=== PATIENT | male | born 1975 | race Caucasian/White ===

== ENCOUNTER 2019-04-27 07:16 | Emergency (ER) | payer OTHER, BC, SELFPAY ==
[2019-04-27] VITALS (11 sets, daily range): BP systolic 139–151; BP diastolic 91–105; PULSE 74–86; RESP 16–18; TEMP 36.6; O2SAT 92–99; BMI 26.1
--- NOTE | 2019-04-27 07:29 | ED_ITS ---
Entered by Ankit Lozada LPN, acting as scribe for HPI - Abdominal Pain General: Chief Complaint: Abdominal Pain Stated Complaint: abd pain Time Seen by Provider: 04/27/19 07:24 Source: patient Mode of arrival: ambulatory Limitations: no limitations History of Present Illness: HPI narrative: 43 yo male presents with c/o abd pain that woke him from sleeping at 0300 this am. He reports it as a stabbing sensation. It is starting to radiate toward his back. He reports associated n/v, no blood present. He reports diarrhea, but states he is taking an abx for sinus infection that has a known side effect of diarrhea, started these 2-3 days ago. He has taken Pepto, was unable to hold that down. Pt reports h/o kidney stones, unsure if this feels like a kidney stone. He has h/o Lithotripsy. He denies pain or burning with urination. Denies hematuria. 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) Pain Consistency: constant Location: LLQ Severity: moderate Exacerbating factors: movement and other (worsened with supine position) Relieving factors: other (improved with sitting up) Associated Symptoms: Reports diarrhea, dysuria, hematuria, nausea and vomiting; Denies chills, fever(s), hematochezia, hematemesis and melena Review of Systems Const: Denies: fever or chills ENMT: Reports: other (sinus congestion- on abx) Card: Denies: chest pain Resp: Denies: shortness of breath GI: Reports: abdominal pain, nausea, vomiting and diarrhea; Denies: vomiting blood, blood in stool or black tarry stool : Reports: difficulty urinating, painful urination and blood in urine; Denies: urinary frequency or urinary urgency Musc: Reports: back pain (pain radiating from left lower abd to left lower back) PFSH ED PFSH: Statuses (acute, chronic, etc) shown below reflect problem list status as previously entered and may not be historically accurate Medical History Urolithiasis (Acute) Surgical History H/O lithotripsy (Acute) Family History Mother , AT AGE 62 Chronic kidney disease (CKD) Social History Smoking and tobacco status: never smoked Alcohol intake: never Adopted: No Caregiver/support person: No Lives independently: Yes Household members: none Marital status: Single Current occupational status: employed Physical Exam Const: COMMON NORMALS: oriented x3, no limitations, healthy appearing, alert and well nourished GENERAL APPEARANCE: cooperative; not comfortable (appears uncomfortable) HENMT: COMMON NORMALS: normocephalic, head/scalp atraumatic, external ears normal and external nose normal HEAD & SCALP: normocephalic and atraumatic NOSE: external nose normal EXTERNAL EAR: Yes external ears normal Eye: COMMON NORMALS: PERRL, EOMs intact bilaterally and conjunctivae normal CONJUNCTIVA: Yes conjunctivae normal PUPIL: Yes PERRL Neck/C-Spine: COMMON NORMALS: full ROM, no lymphadenopathy and supple Resp: COMMON NORMALS: normal respiratory effort, no retractions, no use of accessory muscles and clear to auscultation bilaterally AUSCULTATION: clear to auscultation bilaterally Cardio: COMMON NORMALS: regular rate and regular rhythm RATE: regular rate RHYTHM: regular rhythm GI: COMMON NORMALS: soft to palpation AUSCULTATION: Yes normoactive bowel sounds PALPATION: Yes soft, Yes tender (epigastric, mild) and No guarding : BLADDER/KIDNEY EXAM: Yes CVA tenderness on the left Back/Pelvis: GENERAL BACK: Yes CVA tenderness Neuro: COMMON NORMALS: oriented x3 SENSORIUM/ORIENTATION: Yes alert Skin: COMMON NORMALS: no rashes or lesions noted GENERAL SKIN EXAM: no rashes or lesions noted Procedures Intubation Mg Given: 20 Mg Given: 200 Course Vital Signs: Vital signs: Vital Signs Temperature 97.9 F 04/27/19 07:25 Pulse Rate 86 04/27/19 10:17 Respiratory Rate 16 04/27/19 10:17 Blood Pressure 143/97 04/27/19 10:17 Pulse Oximetry 97 04/27/19 10:17 MDM - Abdominal Pain Lab Data: Labs: Lab Results 04/27/19 04/27/19 04/27/19 Range/Units 07:57 07:57 07:57 WBC 11.7 H (4.0-10.0) 10^3/ uL RBC 4.81 (4.1-5.3) 10^6/u L Hgb 13.8 (11.7-16.6) g/dL Hct 42.0 (42.0-52.0) % MCV 87.3 (80-94) fL MCH 28.7 (28.0-34.0) pg MCHC 32.9 (30.0-36.0) g/dL RDW 13.1 (12.1-15.1) % Plt Count 355 (130-400) 10^3/c mm MPV 9.5 (7.4-10.4) fL Neut % (Auto) 80.8 % Lymph % (Auto) 13.9 % Major % (Auto) 4.5 % Eos % (Auto) 0.3 % Baso % (Auto) 0.2 % Neut # (Auto) 9.4 H (1.8-7.7) 10^3/u L Lymph # (Auto) 1.6 (0.8-4.8) 10^3/u L Major # (Auto) 0.5 (0.2-0.9) 10^3/u L Eos # (Auto) 0.0 (0.0-0.8) 10^3/u L Baso # (Auto) 0.0 (0.0-0.1) 10^3/u L Nucleated RBC % (a uto) 0 % Nucleated RBCs # 0.0 /100WBC Sodium 138 (136-145) mmol/L Potassium 4.0 (3.5-5.1) mmol/L Chloride 100 (98-107) mmol/L Carbon Dioxide 22 (22-29) mmol/L Anion Gap 20.0 H (5-19) BUN 18 (6-20) mg/dL Creatinine 1.0 (0.7-1.2) mg/dL GFR Calculation 82.3 L (90-130) mL/min Glucose 180 H (74-109) mg/dL Lactate 4.3 H* (0.5-2.2) mmol/L Calcium 9.7 (8.6-10.0) mg/Dl Total Bilirubin 0.5 (0.15-1.2) mg/dL AST 17 (0-40) U/L ALT 8 (0-41) U/L Alkaline Phosphata se 58 (40-130) IU/L Total Protein 7.3 (6.6-8.7) g/dL Albumin 4.6 (3.5-5.2) g/dL Globulin 2.7 (1.3-4.6) g/dL Lipase 35 (13-60) U/L Urine Color (Yellow) Urine Appearance (CLEAR) Urine pH (5-7) Ur Specific Gravit y (1.005-1.030) Urine Protein (Negative) Urine Glucose (UA) (Normal) Urine Ketones (Negative) Urine Occult Blood (Negative) Urine Nitrate (Negative) Urine Bilirubin (NEGATIVE) Urine Urobilinogen (Negative) mg/dL Ur Leukocyte Clarisa ase (Negative) Urine RBC (0-2) /hpf Urine WBC (0-5) /hpf Ur Squamous Epith Cells (0-5) Urine Bacteria (NONE) Urine Mucus 04/27/19 Range/Units 08:45 WBC (4.0-10.0) 10^3/ uL RBC (4.1-5.3) 10^6/u L Hgb (11.7-16.6) g/dL Hct (42.0-52.0) % MCV (80-94) fL MCH (28.0-34.0) pg MCHC (30.0-36.0) g/dL RDW (12.1-15.1) % Plt Count (130-400) 10^3/c mm MPV (7.4-10.4) fL Neut % (Auto) % Lymph % (Auto) % Major % (Auto) % Eos % (Auto) % Baso % (Auto) % Neut # (Auto) (1.8-7.7) 10^3/u L Lymph # (Auto) (0.8-4.8) 10^3/u L Major # (Auto) (0.2-0.9) 10^3/u L Eos # (Auto) (0.0-0.8) 10^3/u L Baso # (Auto) (0.0-0.1) 10^3/u L Nucleated RBC % (a uto) % Nucleated RBCs # /100WBC Sodium (136-145) mmol/L Potassium (3.5-5.1) mmol/L Chloride (98-107) mmol/L Carbon Dioxide (22-29) mmol/L Anion Gap (5-19) BUN (6-20) mg/dL Creatinine (0.7-1.2) mg/dL GFR Calculation (90-130) mL/min Glucose (74-109) mg/dL Lactate (0.5-2.2) mmol/L Calcium (8.6-10.0) mg/Dl Total Bilirubin (0.15-1.2) mg/dL AST (0-40) U/L ALT (0-41) U/L Alkaline Phosphata se (40-130) IU/L Total Protein (6.6-8.7) g/dL Albumin (3.5-5.2) g/dL Globulin (1.3-4.6) g/dL Lipase (13-60) U/L Urine Color Natali (Yellow) Urine Appearance Hazy A (CLEAR) Urine pH 5 (5-7) Ur Specific Gravit y 1.025 (1.005-1.030) Urine Protein 1+ H (Negative) Urine Glucose (UA) Norm (Normal) Urine Ketones 1+ H (Negative) Urine Occult Blood 3+ H (Negative) Urine Nitrate Negative (Negative) Urine Bilirubin 1+ H (NEGATIVE) Urine Urobilinogen 1 H (Negative) mg/dL Ur Leukocyte Clarisa ase Negative (Negative) Urine RBC 40-50 H (0-2) /hpf Urine WBC 0-4 H (0-5) /hpf Ur Squamous Epith Cells 0-4 H (0-5) Urine Bacteria 1+ H (NONE) Urine Mucus 1+ Discharge Plan Discharge Patient Disposition: Home, Self-Care Clinical Impression: Ureterolithiasis Condition: Stable Prescriptions: New Flomax 0.4 mg capsule 0.4 mg PO DAILY Qty: 14 RF: 0 [place] 5-325 mg tablet 1 tab PO Q6H PRN (Reason: pain) Qty: 30 RF: 0 promethazine 25 mg tablet 25 mg PO Q6H PRN (Reason: nausea and vomiting) Qty: 20 RF: 0 No Action metoprolol tartrate 50 mg PO BID RF: 0 metformin 1,000 mg PO BID RF: 0 Augmentin 875 mg PO BID RF: 0 Discharge Orders: Discharge Order (Routine); Ordered 04/27/19 Ordered By: Hay Lam Referrals: Tito Miranda MD [Physician] - (follow up on kidney stone) Fish Schmitt Jr, MD [Family Provider] - Discharge Diet: Usual diet Discharge Activity: Increase activity as tolerated Activity Restrictions/Additional Instructions: Case management will call to get you scheduled to see Dr. Miranda. Strain urine. If stone is collected return to lab for analysis. Discharge Date/Time: 04/27/19 09:46 Coding Level of Care Code ED Steward/Stewardess Lounge for Chg Fwd Exam Problem Focused The documentation recorded by the Neville scott Dani Elizabeth, LPN, accurately reflects the service I personally performed and the decisions made by , Hay Lam, Apr 27, 2019 07:16
--- NOTE | 2019-04-27 07:46 | XRR_ITS ---
PROCEDURE INFORMATION: Exam: XR Abdomen, 1 View Exam date and time: 04/27/2019 8:26 AM Age: 43 years old Clinical indication: Pain and condition or disease; Other: Nephrolithiasis; Abdominal pain; Generalized; Prior surgery; Surgery date: 6+ months; Surgery type: Testicle; Additional info: Abd pain/nephrolithiasis TECHNIQUE: Imaging protocol: XR of the abdomen. Views: Frontal supine view of the abdomen. 1 View. COMPARISON: CR XR KUB [id number] 03/28/2017 2:22 PM FINDINGS: Gastrointestinal tract: The renal outline is significantly obscured by bowel. Intraperitoneal space: Possible punctate calcification left pelvis. Bones/joints: Suggestion of a rounded 0.5 CM calcification near the upper margin of the left transverse process of L2 and there is a possible although not confirmed density or calcification near the left transverse process of L4. XR/XR KUB portable [id number] IMPRESSION: 1. Possible left abdominal calcifications the left transverse process of L2 and L4. 2. Punctate calcification is suggested in the left pelvis.
[2019-04-27 08:04] LABS: Basophils % 0.2 %; Eosinophils % 0.3 %; Hemoglobin 13.8 g/dL (11.7-16.6); Lymphocytes # 1.6 10^3/uL (0.8-4.8); Lymphocytes % 13.9 %; Mean Corpuscular HGB Conc 32.9 g/dL (30.0-36.0); Mean Corpuscular Hemoglobin 28.7 pg (28.0-34.0); Mean Corpuscular Volume 87.3 fL (80-94); Mean Platelet Volume 9.5 fL (7.4-10.4); Monocytes # 0.5 10^3/uL (0.2-0.9); Monocytes % 4.5 %; Neutrophils # 9.4 10^3/uL (1.8-7.7); Neutrophils % 80.8 %; Nucleated Red Blood Cells % 0 %; Platelet Count 355 10^3/cmm (130-400); Red Blood Count 4.81 10^6/uL (4.1-5.3); Red Cell Distribution Width 13.1 % (12.1-15.1); White Blood Count 11.7 10^3/uL (4.0-10.0)
[2019-04-27] MEDS: morphine 4 mg/mL SDV 1 mL IVP ×2 (08:11→09:22)
[2019-04-27] MEDS: sodium chloride 0.9% 1,000 ML 999 ML IV (08:12)
[2019-04-27] MEDS: ondansetron 2 mg/ML SDV 2 mL 4 MG IVP (08:12)
--- NOTE | 2019-04-27 08:19 | PC.NURSE ---
requested UA from patient, pt states he is unable to provide one at this time. NO further needs stated at this time.
--- NOTE | 2019-04-27 08:21 | PC.NURSE ---
Portable cxr in room
[2019-04-27 08:22] LABS: Alanine Aminotransferase 8 U/L (0-41); Albumin Level 4.6 g/dL (3.5-5.2); Alkaline Phosphatase 58 IU/L (40-130); Aspartate Amino Transferase 17 U/L (0-40); Blood Urea Nitrogen 18 mg/dL (6-20); Calcium 9.7 mg/Dl (8.6-10.0); Carbon Dioxide 22 mmol/L (22-29); Chloride 100 mmol/L (98-107); Globulin 2.7 g/dL (1.3-4.6); Glomerular Filtration Rate 82.3 mL/min (90-130); Glucose 180 mg/dL (74-109); Lipase 35 U/L (13-60); Sodium 138 mmol/L (136-145); Total Bilirubin 0.5 mg/dL (0.15-1.2); Total Protein 7.3 g/dL (6.6-8.7)
[2019-04-27 08:33] LABS: Lactate (Lactic Acid level) 4.3 mmol/L (0.5-2.2)
--- NOTE | 2019-04-27 08:37 | CTR_ITS ---
PROCEDURE INFORMATION: Exam: CT Abdomen And Pelvis With Contrast Exam date and time: 04/27/2019 8:50 AM Age: 43 years old Clinical indication: Abdominal pain; Generalized; Additional info: Abd pain in to back TECHNIQUE: Imaging protocol: Computed tomography of the abdomen and pelvis with intravenous contrast. Total DLP: 649.09 mGy-cm Radiation optimization: All CT scans at this facility use at least one of these dose optimization techniques: automated exposure control; mA and/or kV adjustment per patient size (includes targeted exams where dose is matched to clinical indication); or iterative reconstruction. Contrast material: OMNI 300; Contrast volume: 95 ml; Contrast route: LT AC; COMPARISON: CT Abdomen/Pelvis Renal [id number] 03/24/2017 4:20 PM FINDINGS: Liver: Normal. No mass. Gallbladder and bile ducts: Normal. No calcified stones. No ductal dilation. Pancreas: Normal. No ductal dilation. Spleen: Normal. No splenomegaly. Adrenals: Normal. No mass. Kidneys and ureters: 3 mm left UPJ stone with moderate left hydronephrosis. Stomach and bowel: Unremarkable. No obstruction. No mucosal thickening. Appendix: Normal appendix. Intraperitoneal space: Unremarkable. No free air. No significant fluid collection. Vasculature: Unremarkable. No abdominal aortic aneurysm. Lymph nodes: Unremarkable. No enlarged lymph nodes. Bladder: Unremarkable as visualized. Reproductive: Unremarkable as visualized. Bones/joints: Unremarkable. No acute fracture. Soft tissues: Unremarkable. CT/CT abdomen pelvis w con* [id number] IMPRESSION: 3 mm left UPJ stone with moderate left hydronephrosis. Radiation Dose CTDIVOL = (mGy): DLP = 649.09 (mGy-cm)
--- NOTE | 2019-04-27 08:55 | PC.NURSE ---
pt reports return of abdominal pain. ED provider notified.
[2019-04-27] MEDS: iohexol 300 mg/mL 100 mL Btl IV (09:13)
[2019-04-27 09:21] LABS: Glucose Urine UA Norm (Normal); Ketones Urine 1+ (Negative); Protein Urine 1+ (Negative); Specific Gravity, Urine 1.025 (1.005-1.030); Urine Appearance Hazy (CLEAR); Urine Color Amber (Yellow); pH Urine 5 (5-7)
[2019-04-27 09:22] LABS: Add Urine Microscopic? YES; Bilirubin Urine 1+ (NEGATIVE); Blood Urine 3+ (Negative); Nitrate Urine Negative (Negative); Urobilinogen Urine 1 mg/dL (Negative)
[2019-04-27 09:23] LABS: RBC Urine 40-50 /hpf (0-2)
[2019-04-27] MEDS: metoclopramide 5 mg/mL SDV 2 mL 10 MG IVP (09:23)
[2019-04-27 09:27] LABS: Add Urine Culture? Yes; Bacteria Urine 1+; Mucus Urine 1+; Squamous Epithelial Cell Urine 0-4 (0-5); WBC Urine 0-4 /hpf (0-5)
[2019-04-27 14:00] LABS: Leukocyte Esterase Urine Negative (Negative)
--- NOTE | 2019-04-29 12:12 | DCPLANNER ---
machining manager had message to schedule a follow up appointment for patient with Dr. Miranda. machining manager called the office of Dr. Miranda, spoke with Fide, gave clinic patients information. machining manager was told that patients information would be printed and given to Irene. Clinic will call patient with appointment information. machining manager will call for appointment information.
--- NOTE | 2019-04-30 14:48 | DCPLANNER ---
A follow up appointment was scheduled for 04.29.[address] Miranda, patient did attend the appointment.
== END 2019-04-27 09:46 | disposition home or self-care (01) ==
PROVIDERS: Emergency Provider Family Medicine; Family Provider Family Medicine
DX: N20.1 Calculus of ureter (principal); Z79.84 Long term (current) use of oral hypoglycemic drugs; Z87.442 Personal history of urinary calculi
CPT/HCPCS: 36415; 74018; 74177; 80053; 81003; 83605; 83690; 85025; 96360; 96374; 99283; A9270; J2270; J2405; J2765; J7030; Q9967

== ENCOUNTER 2019-04-29 15:52 | Outpatient (CLI) | payer BC, SELFPAY ==
--- NOTE | 2019-04-29 | XR_ITS ---
WS: [id number] ABDOMEN KUB CLINICAL INFORMATION: Renal/ureteral calculi. COMPARISON: CT April 27, 2019 FINDINGS: Stable 4.8 mm calculus in the mid left ureter at the L4 level adjacent to the transverse process. Thi s is not significantly changed since the recent CT. XR/XR KUB [id number] Impression: Unchanged 4 mm calculus mid left ureter
== END 2019-04-29 15:53 | disposition home or self-care (01) ==
LOC: RAD 15:57
PROVIDERS: Family Provider Family Medicine; Visit Provider Nurse Practitioner Family
DX: N20.1 Calculus of ureter (principal)
CPT/HCPCS: 74018; 81001

== ENCOUNTER 2019-05-22 09:54 | Outpatient (CLI) | payer BC, OTHER, SELFPAY ==
--- NOTE | 2019-05-22 10:00 | XRR_ITS ---
PROCEDURE INFORMATION: Exam: XR Abdomen, 1 View Exam date and time: 05/22/2019 10:18 AM Age: 43 years old Clinical indication: Condition or disease; Kidney or ureter condition; Calculus (stone) in kidney; Additional info: Kidney stone f/u TECHNIQUE: Imaging protocol: XR of the abdomen. Views: Frontal supine view of the abdomen. 1 View. COMPARISON: CR XR KUB [id number] 04/29/2019 4:30 PM FINDINGS: Gastrointestinal tract: Moderate mature colonic fecal stasis is seen in the ascending colon and proximal descending colon. These findings have increased since prior examination. Wound Bones/joints: Unremarkable. Negative for urinary tract stones XR/XR KUB [id number] IMPRESSION: No acute GI abnormality Negative for radiodense urinary tract stones
== END 2019-05-22 09:55 | disposition home or self-care (01) ==
PROVIDERS: Family Provider Family Medicine; PCP Urology; Visit Provider Urology
DX: N20.0 Calculus of kidney (principal)
CPT/HCPCS: 74018; 81001

== ENCOUNTER 2019-06-02 06:28 | Emergency (ER) | payer BC, SELFPAY ==
[2019-06-02 06:39] VITALS: BP 150/101; PULSE 95; RESP 18; O2SAT 98; BMI 25.1
--- NOTE | 2019-06-02 06:41 | XR_ITS ---
WS: [id number] XR KUB [id number] REASON FOR EXAM: flank pain FINDINGS: Scattered gas and fecal stasis throughout the abdomen seen. A density is seen in the left pelvis area but this was seen on previous exam and most likely is a phl ebolith. Both renal shadows appear to be normal with no definite stones and there is no definite stones is see n in the region of either ureter. XR/XR KUB [id number] IMPRESSION: Nonspecific abdominal findings.
--- NOTE | 2019-06-02 06:42 | W.ED.ABDPA2 ---
HPI - Abdominal Pain General: Chief Complaint: Abdominal Pain Stated Complaint: Side pain, cant urinate Time Seen by Provider: 06/02/19 06:31 Source: patient Limitations: no limitations History of Present Illness: HPI narrative: 43-year-old male with a history of multiple kidney stones. Patient had a kidney stone last month that he states he did pass. States he started having left flank pain radiating to his testicle the last few hours. States pain is sharp in nature and rates it a 6 out of 10 currently. He did vomit once. He denies any worsening or improving factors. MD elicited complaint: flank pain Pertinent past history: kidney stones Onset (ago): hour(s) Pain Consistency: constant Location: L flank Severity: moderate Quality: stabbing and sharp Radiation: suprapubic Exacerbating factors: nothing Relieving factors: nothing Associated Symptoms: Reports dysuria, nausea and vomiting; Denies chills, diarrhea and fever(s) Review of Systems Const: Denies: fever, chills, body aches or change in appetite Eyes: Denies: blurry vision or eye discomfort ENMT: Denies: throat pain or dental pain Card: Denies: chest pain Resp: Denies: shortness of breath GI: Reports: abdominal pain, nausea and vomiting; Denies: diarrhea : Reports: painful urination Musc: Denies: neck pain or back pain Skin/Breast: Denies: rash Neuro: Denies: headache Psych: Denies: depression Ronnie/Lymph: Denies: easy bruising All/Imm: Denies: hives PFSH ED PFSH: Social History Smoking and tobacco status: never smoked Alcohol intake: never Adopted: No Caregiver/support person: No Lives independently: Yes Household members: none Marital status: Single Current occupational status: employed History of recent travel: No Current gender identity: Male Physical Exam Const: COMMON NORMALS: no apparent distress, oriented x3 and healthy appearing HENMT: COMMON NORMALS: normocephalic and head/scalp atraumatic HEAD & SCALP: normocephalic and atraumatic Eye: COMMON NORMALS: PERRL and EOMs intact bilaterally PUPIL: Yes PERRL Neck/C-Spine: COMMON NORMALS: full ROM and supple Chest: COMMONS NORMALS: inspection of chest normal and palpation of chest normal Resp: COMMON NORMALS: normal respiratory effort, no retractions, no use of accessory muscles and clear to auscultation bilaterally AUSCULTATION: clear to auscultation bilaterally Cardio: COMMON NORMALS: regular rate, regular rhythm and no murmurs RATE: regular rate RHYTHM: regular rhythm GI: COMMON NORMALS: normal to inspection, nondistended, normoactive bowel sounds, soft to palpation, non-tender and no masses PALPATION: Yes soft Extremity: COMMON NORMALS: normal to inspection and full ROM Neuro: COMMON NORMALS: oriented x3, moves all extremities and no focal motor deficits Psych: COMMON NORMALS: mental status grossly normal, thought process normal and cooperative THOUGHT PROCESS: normal thought process Skin: COMMON NORMALS: no rashes or lesions noted and no wounds GENERAL SKIN EXAM: no rashes or lesions noted Course Vital Signs: Vital signs: Vital Signs Pulse Rate 95 06/02/19 06:39 Respiratory Rate 18 06/02/19 06:39 Blood Pressure 150/101 06/02/19 06:39 Pulse Oximetry 98 06/02/19 06:39 MDM - Abdominal Pain MDM Narrative: Medical decision making narrative: Patient presents here with flank pain with likely kidney stone. He has had multiple kidney stones in the past. He does have hematuria. His pain is resolved here no do not believe he warrants a CT scan at this time. Is abdominal exam is benign. He is to follow-up with Dr. Miranda and strain his urine. Will prescribe pain meds for home. Lab Data: Labs: Lab Results 06/02/19 Range/Units 06:40 Urine Color Straw (Yellow) Urine Appearance Clear (CLEAR) Urine pH 5 (5-7) Ur Specific Gravit y 1.025 (1.005-1.030) Urine Protein Neg (Negative) Urine Glucose (UA) Norm (Normal) Urine Ketones Negative (Negative) Urine Occult Blood 3+ H (Negative) Urine Nitrate Negative (Negative) Urine Bilirubin Neg (NEGATIVE) Urine Urobilinogen Norm (Negative) mg/dL Ur Leukocyte Clarisa ase Negative (Negative) Urine RBC 80-100 H (0-2) /hpf Urine WBC None (0-5) /hpf Ur Squamous Epith Cells Rare (0-5) Calcium Oxalate Cr ystal 5-10 H /hpf Urine Bacteria Trace (NONE) Imaging Data ^: KUB: Attestation: I personally reviewed and interpreted this imaging study as follows: My impression: no acute abnormality Discharge Plan Discharge Patient Disposition: Home, Self-Care Clinical Impression: Calculus of kidney Condition: Stable Prescriptions: [place] 5-325 mg tablet 1 tab PO Q6H PRN (Reason: pain) Qty: 14 RF: 0 Zofran 4 mg tablet 4 mg PO QID PRN (Reason: nausea and vomiting) Qty: 14 RF: 0 No Action Flomax 0.4 mg capsule 0.4 mg PO DAILY Qty: 30 RF: 0 metoprolol tartrate bottle 50 mg PO BID RF: 0 metformin bottle 1,000 mg PO BID RF: 0 hydrocodone-acetaminophen [[place]] 5-325 mg tablet 1 tab PO Q6H PRN (Reason: pain) Qty: 30 RF: 0 promethazine 25 mg tablet 25 mg PO Q6H PRN (Reason: nausea and vomiting) Qty: 20 RF: 0 Cozaar 50 mg tablet 50 mg PO DAILY RF: 0 Discharge Orders: Discharge Order (Routine); Ordered 06/02/19 Ordered By: Yandy Dangelo Referrals: Tito Miranda MD [Physician] - 4-7 days Fish Schmitt Jr, MD [Family Provider] - Fish Schmitt MD [Primary Care Provider] - Discharge Diet: Advance as tolerated Discharge Activity: Resume usual activity Patient Instructions: Kidney Stones (ED) Coding Level of Care Code ED Letter Carrier for Chg Fwd Exam Comprehensive
--- NOTE | 2019-06-02 07:10 | PC.NURSE ---
Patient returned from CT via stretcher. No needs at this time.
[2019-06-02 07:22] LABS: Specific Gravity, Urine 1.025 (1.005-1.030); Urine Appearance Clear (CLEAR); Urine Color Straw (Yellow); pH Urine 5 (5-7)
[2019-06-02 07:23] LABS: Bilirubin Urine Neg (NEGATIVE); Blood Urine 3+ (Negative); Glucose Urine UA Norm (Normal); Ketones Urine Negative (Negative); Leukocyte Esterase Urine Negative (Negative); Nitrate Urine Negative (Negative); Protein Urine Neg (Negative); Urobilinogen Urine Norm (Negative)
[2019-06-02] MEDS: ketorolac 30 mg/mL INJ IVP (07:23)
[2019-06-02] MEDS: HYDROmorphone 1 mg/mL INJ 1 mL IVP (07:23)
[2019-06-02] MEDS: sodium chloride 0.9% 1,000 ML 999 ML IV (07:23)
[2019-06-02] MEDS: ondansetron 2 mg/ML SDV 2 mL 4 MG IVP (07:23)
[2019-06-02 07:24] LABS: Add Urine Culture? Yes; Bacteria Urine TRACE; RBC Urine 80-100 /hpf (0-2); Squamous Epithelial Cell Urine RARE (0-5)
[2019-06-02 07:46] VITALS: BP 131/90; PULSE 102; RESP 14; O2SAT 97
--- NOTE | 2019-06-04 13:16 | DCPLANNER ---
tire center manager had message to schedule a follow up appointment for patient with Dr. Miranda. tire center manager called the office of Dr. Miranda, spoke with Fide. tire center manager gave clinic patients information, case coordinator was told that patient has a follow up appointment scheduled for Tuesday, June 11, 2019 at 9:15 at hospital for x ray, then he is to go to Dr. Workman office.
--- NOTE | 2019-06-25 14:25 | DCPLANNER ---
Patient did attend appointment schedueld for 06.11.[address] Miranda.
== END 2019-06-02 07:47 | disposition home or self-care (01) ==
PROVIDERS: Emergency Provider Emergency Medicine; Family Provider Family Medicine; PCP Plastic Surgery
DX: N20.0 Calculus of kidney (principal)
CPT/HCPCS: 74018; 81001; 87086; 96360; 96361; 96374; 96375; 99282; 99283; A9270; J1170; J1885; J2405; J7030

== ENCOUNTER 2019-06-11 09:44 | Outpatient (CLI) | payer BC, SELFPAY ==
--- NOTE | 2019-06-11 15:00 | XR_ITS ---
WS: [id number] KUB, 06/11/2019 Clinical Data: Renal stone Comparison: KUB, 06/02/2019 Findings: No abnormal intraabdominal masses or calcifications are seen. There is no dilatated small bowel or ev idence of obstruction. There is fecal material especially in the katina ascending colon. The bladder is partly full. There is a calcification in the left pelvis has the appearance of a phlebolith. XR/XR KUB [id number] Impression: Negative KUB.
== END 2019-06-11 09:45 | disposition home or self-care (01) ==
LOC: RAD 09:54
PROVIDERS: Family Provider Family Medicine; PCP Plastic Surgery; Visit Provider Urology
DX: N20.0 Calculus of kidney (principal)
CPT/HCPCS: 74018; 81001

== ENCOUNTER 2019-06-25 08:32 | Outpatient (CLI) | payer BC, SELFPAY ==
--- NOTE | 2019-06-25 08:15 | XR_ITS ---
WS: [id number] KUB, 06/25/2019 Clinical Data: Left ureteral stone Comparison: KUB, 06/11/2019. Findings: No abnormal intraabdominal masses or calcifications are seen. There is no dilatated small bowel or ev idence of obstruction. There is a calcification on the left side of the true pelvis which has not changed. This could repres ent a phlebolith or a distal left ureteral calculus. There is a large amount of fecal material in the ascending colon. The bladder is partly full XR/XR KUB [id number] Impression: No change in calcification on the left side of the true pelvis.
== END 2019-06-25 08:33 | disposition home or self-care (01) ==
LOC: RAD 08:36
PROVIDERS: Family Provider Family Medicine; PCP Plastic Surgery; Visit Provider Nurse Practitioner Family
DX: N20.1 Calculus of ureter (principal)
CPT/HCPCS: 74018; 81001

== ENCOUNTER 2020-01-08 13:21 | Outpatient (CLI) | payer BC, OTHER, SELFPAY ==
--- NOTE | 2020-01-08 09:00 | XRR_ITS ---
PROCEDURE INFORMATION: Exam: XR Abdomen, 1 View Exam date and time: 01/08/2020 1:32 PM Age: 44 years old Clinical indication: Condition or disease; Kidney or ureter condition; Calculus (stone) in kidney; Additional info: Ureteral stone TECHNIQUE: Imaging protocol: XR of the abdomen. Views: Frontal supine view of the abdomen. 1 View. COMPARISON: CR XR KUB [id number] 06/25/2019 8:47 AM FINDINGS: Gastrointestinal tract: No bowel dilation. There is stool throughout colon. Bones/joints: Unremarkable. There is calcification in the inferior left kidney. XR/XR KUB [id number] IMPRESSION: No acute findings. There is calcification in the inferior left kidney.If there is desire for further evaluation, a CT scan could be performed.
== END 2020-01-08 13:22 | disposition home or self-care (01) ==
LOC: RAD 13:21
PROVIDERS: PCP Family Medicine; Visit Provider Urology
DX: N20.1 Calculus of ureter (principal); N20.0 Calculus of kidney
CPT/HCPCS: 74018; 81001

== ENCOUNTER → 2020-01-23 11:05 | Outpatient (BNVA) | payer OTHER, BC, SELFPAY | PROVIDERS: PCP Family Medicine; Visit Provider Urology | DX: N20.0 Calculus of kidney (principal) | CPT/HCPCS: 80048; 81003; 82131; 82140; 82340; 82436; 82507; 82570; 83735; 83935; 84100; 84300; 84550 ==

== ENCOUNTER → 2020-03-04 14:48 | Outpatient (BNVA) | payer OTHER, BC, SELFPAY | PROVIDERS: PCP Family Medicine; Visit Provider Urology | DX: N20.0 Calculus of kidney (principal); R82.994 Hypercalciuria | CPT/HCPCS: 81003 ==

== ENCOUNTER 2020-08-10 10:36 | Emergency (ER) | payer OTHER, SELFPAY ==
[2020-08-10 10:40] VITALS: BP 148/101; PULSE 98; RESP 14; TEMP 36.6; O2SAT 100; BMI 28.8
--- NOTE | 2020-08-10 10:46 | W.ED.ABDPA2 ---
HPI - Abdominal Pain General: Chief Complaint: Abdominal Pain Stated Complaint: Poss Kidney Stones Time Seen by Provider: 08/10/20 10:38 Source: patient Mode of arrival: ambulatory Limitations: no limitations History of Present Illness: HPI narrative: Patient is a 45-year-old male who presents to ED today along with his father for complaints of left lower quadrant abdominal pain that began around 5 AM this morning. Patient states pain began fairly suddenly. He tells me he does have a history of kidney and ureter stones states the pain feels similar. Patient has followed up with Dr. Miranda for these previously. He states when the pain started he got nauseous and had one episode of vomiting. He has not noticed any changes in bowel movements. No fevers. MD elicited complaint: abdominal pain Onset (ago): hour(s) Pain Consistency: constant Location: LLQ Severity: moderate Quality: sharp Radiation: none Migration to: no migration Exacerbating factors: nothing Relieving factors: nothing Associated Symptoms: Reports nausea and vomiting (x 1); Denies change in stool character, chills, diarrhea, dysuria and fever(s) Review of Systems Const: Denies: fever(s), chills, body aches, fatigue or malaise Card: Denies: chest pain Resp: Denies: dyspnea GI: Reports: abdominal pain, nausea and vomiting (x 1); Denies: diarrhea or change in stool character : Reports: urinary hesitancy; Denies: flank pain, difficulty urinating, dysuria, urinary frequency, urinary urgency, genital lesions, testicular pain, testicular mass or scrotal swelling Musc: Denies: back pain Skin/Breast: Denies: rash PFSH ED PFSH: Medical History Diabetes H/O undescended testicle repair Left renal stone Left ureteral calculus Urolithiasis Surgical History H/O lithotripsy Family History Mother , AT AGE 62 Chronic kidney disease (CKD) Father CAD (coronary artery disease) Social History Smoking and tobacco status: never smoked Alcohol intake: never Adopted: No Caregiver/support person: No Lives independently: Yes Household members: none Marital status: Single Current occupational status: employed History of recent travel: No Current gender identity: Male Physical Exam Const: COMMON NORMALS: no acute distress, patient oriented x3, no limitations and alert GENERAL APPEARANCE: cooperative ORIENTATION/CONSCIOUSNESS: Yes awake, Yes oriented to person, Yes oriented to place and Yes oriented to time Resp: COMMON NORMALS: normal respiratory effort and clear to auscultation bilaterally AUSCULTATION: clear to auscultation bilaterally Cardio: COMMON NORMALS: regular rate and regular rhythm RATE: regular rate RHYTHM: regular rhythm GI: COMMON NORMALS: Normal to inspection, nondistended, normoactive bowel sounds present, Soft to palpation, No hepatosplenomegaly present and no masses PALPATION: Yes Soft to palpation, Yes Tenderness to palpation present (GI) Details: LLQ and Yes No hepatosplenomegaly present : COMMON NORMALS: Yes no CVA tenderness BLADDER/KIDNEY EXAM: Yes no CVA tenderness Back/Pelvis: COMMON NORMALS: no CVA tenderness Extremity: COMMON NORMALS: capillary refill normal, no clubbing, cyanosis or edema and no pedal edema Neuro: COMMON NORMALS: patient oriented x3 SENSORIUM/ORIENTATION: Yes alert, Yes oriented to person, Yes oriented to place and Yes oriented to time Skin: COMMON NORMALS: no rashes or lesions noted GENERAL SKIN EXAM: no rashes or lesions noted Course Consultations: Consultation #1: Dr. Miranda-will review CT scan and call patient with appointment date/time; request COVID screen in case stone requires surgical intervention Vital Signs: Vital signs: Vital Signs Temperature 97.9 F 08/10/20 10:40 Pulse Rate 83 08/10/20 11:55 Respiratory Rate 17 08/10/20 11:55 Blood Pressure 144/94 08/10/20 11:55 Pulse Oximetry 97 08/10/20 11:55 MDM - Abdominal Pain MDM Narrative: Medical decision making narrative: Patient believes pain could be controlled at home. No infection on UA. Will DC with Flomax, pain/nausea meds, and recommend straining urine. He will see Ruben this week for further followup/management. Lab Data: Labs: Lab Results 08/10/20 08/10/20 08/10/20 Range/Units 11:00 11:00 11:24 WBC 12.8 H (4.0-10.0) 10^3/ uL RBC 4.56 (4.1-5.3) 10^6/u L Hgb 13.5 (11.7-16.6) g/dL Hct 40.9 L (42.0-52.0) % MCV 89.7 (80-94) fL MCH 29.6 (28.0-34.0) pg MCHC 33.0 (30.0-36.0) g/dL RDW 13.7 (12.1-15.1) % Plt Count 309 (130-400) 10^3/c mm MPV 9.6 (7.4-10.4) fL Neut % (Auto) 79.8 % Lymph % (Auto) 11.2 % [place] % (Auto) 6.6 % Eos % (Auto) 1.5 % Baso % (Auto) 0.5 % Neut # (Auto) 10.24 H (1.8-7.7) 10^3/u L Lymph # (Auto) 1.4 (0.8-4.8) 10^3/u L [place] # (Auto) 0.8 (0.2-0.9) 10^3/u L Eos # (Auto) 0.2 (0.0-0.8) 10^3/u L Baso # (Auto) 0.1 (0.0-0.1) 10^3/u L Nucleated RBC % (a uto) 0 % Nucleated RBCs # 0.0 /100WBC Sodium 132 L (136-145) mmol/L Potassium 4.2 (3.5-5.1) mmol/L Chloride 97 L (98-107) mmol/L Carbon Dioxide 23 (22-29) mmol/L Anion Gap 16.2 (5-19) BUN 16 (6-20) mg/dL Creatinine 0.7 (0.7-1.2) mg/dL GFR Calculation 123.1 (90-130) mL/min Glucose 222 H (65-115) mg/dL Calculated Osmolal ity 282 L (285-295) mOsm/k g Calcium 7.9 L (8.5-10.5) mg/dL Total Bilirubin 0.6 (0.15-1.2) mg/dL AST 18 (0-40) U/L ALT 8 (0-41) U/L Alkaline Phosphata se 56 (40-130) IU/L Total Protein 6.5 L (6.6-8.7) g/dL Albumin 4.1 (3.5-5.2) g/dL Globulin 2.4 (1.3-4.6) g/dL Urine Color Yellow (Yellow) Urine Appearance Hazy A (CLEAR) Urine pH 5 (5-7) Ur Specific Gravit y 1.020 (1.005-1.030) Urine Protein Trace (Negative) Urine Glucose (UA) 2+ (Normal) Urine Ketones 1+ H (Negative) Urine Blood 3+ H (Negative) Urine Nitrate Negative (Negative) Urine Bilirubin Neg (Negative) Urine Urobilinogen Norm (Negative) mg/dL Ur Leukocyte Clarisa ase Negative (Negative) Urine RBC Too numerous to c nt H (0-2) /hpf Urine WBC None (0-5) /hpf Ur Squamous Epith Cells 0-4 H (0-5) /hpf Amorphous Sediment Not Reportable Urine Bacteria 2+ H (NONE) /hpf Imaging Data ^: CT Abd/Pel: Radiologist's impression: [place] [address] CT Scan Report Signed Patient: Garth Chapman I Unit #: [id number] : 1975 Age/Sex: 45 / M ADM Date: 08/10/20 Loc: ER Room/Bed: Attending Dr: Ordering Provider/Ordering MD: Altagracia Calvillo Date of Service: 08/10/20 Procedure(s): CT kidney stone [id number] Accession Number(s): [id number] Report Number: [id number] WS: [id number] CT ABDOMEN AND PELVIS NONCONTRAST HISTORY: L lower abdominal pain TECHNIQUE: Imaging performed through the abdomen and pelvis. Coronal and sagittal reformats are submitted. All CT scans at [facility] use at least one of these dose optimization techniques: automated exposure control; mA and/or kV adjustment per patient size (includes targeted exams where dose is matched to clinical indication); or iterative reconstruction. DLP: 1427.98 mGy.cm COMPARISON: 04/27/2019 Lower thorax: 2 mm nodule at the LEFT lung base no pleural effusions or pneumonia. Small hiatal hernia. Liver: Mild low attenuation suggesting hepatic steatosis. Liver is also moderately enlarged extending over length of 21.4 cm. Gallbladder: Normal gallbladder. Pancreas: Normal size and attenuation. Normal pancreatic duct. No pancreatitis or mass. Spleen: Normal. Adrenal glands: Normal. No mass. Right kidney: Mild perinephric stranding. No obstruction. No renal calcifications. Left kidney: Marked enlargement of the kidney with a large amount of perinephric stranding and moderate to severe hydronephrosis. No additional calcifications in the renal pelvis. 7 mm calcification in the mid LEFT ureter causing the obstruction. Aorta: Normal abdominal aorta, no aneurysm or atherosclerosis. No free fluid, intraperitoneal air or significant lymphadenopathy. GI tract: Normal appendix. No GI tract obstruction or diverticulosis. Abdominal wall: Negative. No hernia. Pelvis: Nondistended urinary bladder resulting in the wall being cystic. No free fluid or adenopathy in the pelvis. Osseous structures: Unremarkable. CT/CT kidney stone [id number] IMPRESSION: 1. Severe LEFT hydroureteronephrosis secondary to a 7 mm calcification in the mid ureter. Large amount of perinephric stranding. 2. No RIGHT renal calcifications. 3. Moderate hepatomegaly with hepatic steatosis. 4. Small hiatal hernia. 5. Normal appendix. Dictated By: Vicenta Rojas DO Signed By: Vicenta Rojas DO Signed Date/Time: 08/10/20 112 DD/ 1120 Discharge Plan Discharge Patient Disposition: Home Clinical Impression: Calculus of left ureter, Hydronephrosis of left kidney Condition: Stable Prescriptions: New hydrocodone-acetaminophen 5-325 mg tablet 1 tab PO Q4H PRN (Reason: pain) Qty: 20 RF: 0 Zofran 4 mg tablet 4 mg PO Q6H PRN (Reason: nausea and vomiting) Qty: 14 RF: 0 Flomax 0.4 mg capsule 0.4 mg PO DAILY Qty: 10 RF: 0 No Action multivitamin Tablet 1 tab PO DAILY RF: 0 levocetirizine [Xyzal] 2.5 mg/5 mL solution 2.5 mg PO DAILY PRNRF: 0 levocetirizine [Xyzal] 5 mg tablet 5 mg PO DAILY PRNRF: 0 vitamin E (dl, acetate) 200 unit capsule 200 unit PO DAILY RF: 0 [id number] [MegaRed [place]-3 Krill Oil] 1,000-230-60 mg capsule 1 cap PO DAILY RF: 0 stone free PO .2 times RF: 0 metoprolol tartrate bottle 50 mg PO BID RF: 0 metformin bottle 1,000 mg PO BID RF: 0 [place] 5-325 mg tablet 1 tab PO Q6H PRN (Reason: pain) Qty: 14 RF: 0 Cozaar 50 mg tablet See Rx Instructions PO DAILY RF: 0 Discharge Orders: Discharge ED (Routine); Ordered 08/10/20 Ordered By: Altagracia Calvillo Referrals: Abigail Roque MD [Primary Care Provider] - Patient Instructions: Kidney Stones (ED), Opioid Safety Activity Restrictions/Additional Instructions: [facility] is committed to fighting the nationwide opiate epidemic. We are providing ALL patients with information regarding opiate safety. If you received opiate pain medication during your stay or if you received a prescription for opiate pain medication-please review this handout. If not, you may disregard. Thank you. As discussed Dr. Miranda is going to see you this week. Their office should contact you for specific date and time. As we discussed due to the size of your stone this may require intervention. Begin taking the Flomax as directed. Pain and nausea meds can be used as needed. You need to return to the emergency department for worsening or uncontrollable pain, repetitive episodes of vomiting, inability to hold down your medications, fevers, or any other concerns you may have. Coding Level of Care Code ED [employer] Specialist for Jyoti Birch Exam Detailed
--- NOTE | 2020-08-10 10:55 | CT_ITS ---
WS: [id number] CT ABDOMEN AND PELVIS NONCONTRAST HISTORY: L lower abdominal pain TECHNIQUE: Imaging performed through the abdomen and pelvis. Coronal and sagittal reformats are submi tted. All CT scans at [facility] use at least one of these dose optimization techniques: automated exposure control; mA and/or kV adjustment per patient size (includes targeted exams where d ose is matched to clinical indication); or iterative reconstruction. DLP: 1427.98 mGy.cm COMPARISON: 04/27/2019 Lower thorax: 2 mm nodule at the LEFT lung base no pleural effusions or pneumonia. Small hiatal herni a. Liver: Mild low attenuation suggesting hepatic steatosis. Liver is also moderately enlarged extending over length of 21.4 cm. Gallbladder: Normal gallbladder. Pancreas: Normal size and attenuation. Normal pancreatic duct. No pancreatitis or mass. Spleen: Normal. Adrenal glands: Normal. No mass. Right kidney: Mild perinephric stranding. No obstruction. No renal calcifications. Left kidney: Marked enlargement of the kidney with a large amount of perinephric stranding and modera te to severe hydronephrosis. No additional calcifications in the renal pelvis. 7 mm calcification in the mid LEFT ureter causing the obstruction. Aorta: Normal abdominal aorta, no aneurysm or atherosclerosis. No free fluid, intraperitoneal air or significant lymphadenopathy. GI tract: Normal appendix. No GI tract obstruction or diverticulosis. Abdominal wall: Negative. No hernia. Pelvis: Nondistended urinary bladder resulting in the wall being cystic. No free fluid or adenopathy in the pelvis. Osseous structures: Unremarkable. CT/CT kidney stone [id number] IMPRESSION: 1. Severe LEFT hydroureteronephrosis secondary to a 7 mm calcification in the mid ureter. Large amount of perinephric stranding. 2. No RIGHT renal calcifications. 3. Moderate hepatomegaly with hepatic steatosis. 4. Small hiatal hernia. 5. Normal appendix.
[2020-08-10 11:06] LABS: Basophils # 0.1 10^3/uL (0.0-0.1); Basophils % 0.5 %; Eosinophils # 0.2 10^3/uL (0.0-0.8); Eosinophils % 1.5 %; Hematocrit 40.9 % (42.0-52.0); Hemoglobin 13.5 g/dL (11.7-16.6); Lymphocytes # 1.4 10^3/uL (0.8-4.8); Lymphocytes % 11.2 %; Mean Corpuscular Hemoglobin 29.6 pg (28.0-34.0); Mean Corpuscular Volume 89.7 fL (80-94); Mean Platelet Volume 9.6 fL (7.4-10.4); Monocytes # 0.8 10^3/uL (0.2-0.9); Monocytes % 6.6 %; Neutrophils # 10.24 10^3/uL (1.8-7.7); Neutrophils % 79.8 %; Nucleated Red Blood Cells % 0 %; Platelet Count 309 10^3/cmm (130-400); Red Blood Count 4.56 10^6/uL (4.1-5.3); Red Cell Distribution Width 13.7 % (12.1-15.1); White Blood Count 12.8 10^3/uL (4.0-10.0)
[2020-08-10 11:30] LABS: Alanine Aminotransferase 8 U/L (0-41); Albumin Level 4.1 g/dL (3.5-5.2); Alkaline Phosphatase 56 IU/L (40-130); Anion Gap 16.2 (5-19); Aspartate Amino Transferase 18 U/L (0-40); Blood Urea Nitrogen 16 mg/dL (6-20); Calcium 7.9 mg/dL (8.5-10.5); Carbon Dioxide 23 mmol/L (22-29); Chloride 97 mmol/L (98-107); Creatinine Clr Calc Pharmacy 149.7349; Globulin 2.4 g/dL (1.3-4.6); Glomerular Filtration Rate 123.1 mL/min (90-130); Glucose 222 mg/dL (65-115); Osmolality Calculated 282 mOsm/kg (285-295); Potassium 4.2 mmol/L (3.5-5.1); Sodium 132 mmol/L (136-145); Total Bilirubin 0.6 mg/dL (0.15-1.2); Total Protein 6.5 g/dL (6.6-8.7)
[2020-08-10 11:35] LABS: Glucose Urine UA 2+ (Normal); Ketones Urine 1+ (Negative); Protein Urine Trace (Negative); Urine Appearance Hazy (CLEAR); Urine Color Yellow (Yellow); pH Urine 5 (5-7)
[2020-08-10 11:36] LABS: Add Urine Microscopic? YES; Bilirubin Urine Neg (Negative); Blood Urine 3+ (Negative); Leukocyte Esterase Urine Negative (Negative); Nitrate Urine Negative (Negative); Urobilinogen Urine Norm (Negative)
[2020-08-10] MEDS: ondansetron 2 mg/ML SDV 2 mL 4 MG IVP (11:52)
[2020-08-10] MEDS: morphine 4 mg/mL SDV 1 mL IVP (11:53)
[2020-08-10 11:55] VITALS: BP 144/94; PULSE 83; RESP 17; O2SAT 97
[2020-08-10 11:55] LABS: Add Urine Culture? Yes; Bacteria Urine 2+ /hpf; RBC Urine TOO NUMEROUS TO CNT /hpf (0-2); Squamous Epithelial Cell Urine 0-4 /hpf (0-5)
[2020-08-10 12:26] VITALS: BP 144/94; PULSE 96; RESP 15; O2SAT 97
--- NOTE | 2020-08-10 14:06 | DCPLANNER ---
manager operational was asked to schedule a follow up appointment for patient with Dr. Miranda. manager operational called the office of Dr. Miranda, spoke with Fide, gave clinic patients information. manager operational was told that patients information would be printed and reviewed. Clinic will call patient with appointment information.
--- NOTE | 2020-08-11 08:24 | DCPLANNER ---
Patient has a follow up appointment scheduled for Tuesday, August 11, 2020 at 4:[address] Miranda. Clinic will call patient with appointment information.
--- NOTE | 2020-08-12 11:08 | DCPLANNER ---
Patient had a follow up appointment scheduled for 08.11.[address] Miranda - patient did attend appointment.
[2020-08-12 14:53] LABS: Coronavirus Test Green County Not Detected
--- NOTE | 2020-08-12 16:42 | PC.NURSE ---
Pt contacted and notified of negative COVID test.
== END 2020-08-10 12:27 | disposition home or self-care (01) ==
PROVIDERS: Emergency Provider Physician Assistant; PCP Family Medicine
DX: N13.2 Hydronephrosis with renal and ureteral calculous obstruction (principal); E11.9 Type 2 diabetes mellitus without complications; Z87.442 Personal history of urinary calculi
CPT/HCPCS: 36415; 74176; 80053; 81001; 85025; 87086; 87635; 96374; 96375; 99283; J2270; J2405

== ENCOUNTER 2020-08-11 15:04 | Outpatient (CLI) | payer OTHER, SELFPAY ==
--- NOTE | 2020-08-11 15:15 | XRR_ITS ---
PROCEDURE INFORMATION: Exam: XR Abdomen Exam date and time: 08/11/2020 3:14 PM Age: 45 years old Clinical indication: Condition or disease; Kidney or ureter condition; Calculus (stone) in ureter; Additional info: Ureteral calculus TECHNIQUE: Imaging protocol: XR of the abdomen. Views: Frontal supine view of the abdomen. 1 View. COMPARISON: CR XR KUB [id number] 01/08/2020 1:24 PM FINDINGS: Gastrointestinal tract: Normal. No bowel dilation. Bones/joints: A calcified density is seen in the left lower quadrant near the L5 left transverse process. This finding measures 4.4 mm x 5.6 mm. Review of prior examination showed this finding was not present at that time. This finding therefore likely represents a calcification within the left ureter. XR/XR KUB [id number] IMPRESSION: 1. No acute GI abnormality. 2. Calcified urinary tract stone left lower quadrant. 3. Otherwise negative examination
== END 2020-08-11 15:05 | disposition home or self-care (01) ==
PROVIDERS: PCP Family Medicine; Visit Provider Urology
DX: N20.1 Calculus of ureter (principal)
CPT/HCPCS: 74018; 81003

== ENCOUNTER 2020-08-18 10:11 | Outpatient (CLI) | payer OTHER, SELFPAY ==
--- NOTE | 2020-08-18 10:00 | XRR_ITS ---
PROCEDURE INFORMATION: Exam: XR Abdomen Exam date and time: 08/18/2020 10:22 AM Age: 45 years old Clinical indication: Condition or disease; Kidney or ureter condition; Calculus (stone) in kidney; Additional info: Renal stone TECHNIQUE: Imaging protocol: XR of the abdomen. Views: Frontal supine view of the abdomen. 1 View. COMPARISON: CR XR KUB [id number] 08/11/2020 3:17 PM FINDINGS: Gastrointestinal tract: Normal. No bowel dilation. Organs: The mm left ureteral calculus has moved distally and now projects about 2 cm below the left SI joint. Bones/joints: Unremarkable. XR/XR KUB [id number] IMPRESSION: The 5 mm left ureteral calculus now projects in the distal left ureter below the SI joint.
== END 2020-08-18 10:12 | disposition home or self-care (01) ==
LOC: RAD 10:12
PROVIDERS: PCP Family Medicine; Visit Provider Urology
DX: N20.0 Calculus of kidney (principal); N20.1 Calculus of ureter
CPT/HCPCS: 74018; 81003

== ENCOUNTER 2020-09-01 12:43 | Outpatient (CLI) | payer OTHER, SELFPAY ==
--- NOTE | 2020-09-01 13:00 | XRR_ITS ---
PROCEDURE INFORMATION: Exam: XR Abdomen Exam date and time: 09/01/2020 12:00 AM Age: 45 years old Clinical indication: Condition or disease; Kidney or ureter condition; Calculus (stone) in kidney; Additional info: Renal stone TECHNIQUE: Imaging protocol: XR of the abdomen. Views: Frontal supine view of the abdomen. 1 View. COMPARISON: CR XR KUB [id number] 08/18/2020 10:23 AM FINDINGS: Gastrointestinal tract: Normal. No bowel dilation. Organs: The distal left 7 mm calculus has moved to the projection of the left ureterovesical junction. No other calcifications are seen in the projection of the kidneys. Bones/joints: Unremarkable. XR/XR KUB [id number] IMPRESSION: A 7 mm calculus projects at the left ureterovesical junction.
== END 2020-09-01 12:44 | disposition home or self-care (01) ==
LOC: RAD 12:44
PROVIDERS: PCP Family Medicine; Visit Provider Nurse Practitioner Family
DX: N20.0 Calculus of kidney (principal)
CPT/HCPCS: 74018; 81003; 87086

== ENCOUNTER 2020-09-16 12:54 | Outpatient (CLI) | payer OTHER, SELFPAY ==
--- NOTE | 2020-09-16 13:00 | XR_ITS ---
WS: [id number] KUB, AP view, 09/16/2020 Clinical Data: N20.0 - Calculus of kidney Comparison: KUB, 09/01/2020. Findings: No abnormal intraabdominal masses or calcifications are seen. There is no dilatated small bowel or ev idence of obstruction. The 0.7 cm calcification at the left UVJ is no longer present. XR/XR KUB [id number] Impression: Negative KUB.
== END 2020-09-16 12:55 | disposition home or self-care (01) ==
LOC: RAD 12:54
PROVIDERS: PCP Family Medicine; Visit Provider Urology
DX: N20.0 Calculus of kidney (principal)
CPT/HCPCS: 74018; 81003

== ENCOUNTER 2021-03-23 12:56 | Outpatient (CLI) | payer OTHER, SELFPAY ==
--- NOTE | 2021-03-23 13:00 | XR_ITS ---
WS: [id number] Exam: XR KUB [id number] Date/Time of Exam: 03/23/2021 1:02 PM Reason For Exam: RENAL STONE No bowel obstruction or free air. No sign of organ enlargement. 1 mm calcification seen along the rig ht paraspinal region at the level of L3. Regional bony elements are intact. Moderate amount stool in the large bowel. XR/XR KUB [id number] IMPRESSION: 1. No acute abdominal finding. 2. 1 mm calcification along the right paraspinal region at about the level of L 3. This is nonspecific but might be seen with a ureteral stone.
== END 2021-03-23 12:57 | disposition home or self-care (01) ==
LOC: RAD 12:59
PROVIDERS: PCP Family Medicine; Visit Provider Urology
DX: N20.0 Calculus of kidney (principal)
CPT/HCPCS: 74018; 81003

== ENCOUNTER 2022-03-22 14:14 | Outpatient (CLI) | payer OTHER, SELFPAY ==
--- NOTE | 2022-03-22 14:49 | XR_ITS ---
WS: [id number] KUB, AP view, 03/22/2022 Clinical Data: Urolithiasis Comparison: KUB, 03/23/2021. Findings: No abnormal intraabdominal masses or calcifications are seen. There is no dilatated small bowel or ev idence of obstruction. There is a moderate amount of fecal material throughout the colon. XR/XR KUB [id number] Impression: Negative KUB.
== END 2022-03-22 14:15 | disposition home or self-care (01) ==
LOC: RAD 14:17
PROVIDERS: PCP Family Medicine; Visit Provider Urology
DX: N20.9 Urinary calculus, unspecified (principal)
CPT/HCPCS: 74018; 81003

== ENCOUNTER 2025-01-18 08:57 | Emergency (ER) | payer OTHER, SELFPAY ==
[2025-01-18 09:18] VITALS: BP 155/98; PULSE 88; RESP 18; TEMP 36.8; O2SAT 98
[2025-01-18] MEDS: ondansetron 2 mg/ML SDV 2 mL 4 MG IVP (09:54)
[2025-01-18] MEDS: HYDROmorphone 0.5 MG/0.5 ML INJ 1 MG IVP (09:55)
--- NOTE | 2025-01-18 09:59 | W.ED.ABDPA2 ---
HPI - Abdominal Pain General: Chief Complaint: Abdominal Pain Stated Complaint: abd pain Time Seen by Provider: 01/18/25 09:48 Source: patient Mode of arrival: ambulatory Limitations: no limitations History of Present Illness: 49-year-old male states he had left flank pain that started this morning. States sharp pain radiates to his groin rates it a 9 out of 10 he had nausea and vomiting as well. He states has had multiple kidney stones in the past and this feels similar. He denies any severe abdominal pain denies any fevers denies any dysuria Associated Symptoms: Reports nausea and vomiting Related Data Home Medications ?Medication ?Instructions ?Recorded ?Confirmed glipizide 5 mg tablet 5 mg PO DAILY 08/11/20 01/18/25 diphenhydramine HCl 25 mg capsule 25 mg PO TID PRN allergies 01/18/25 01/18/25 (Benadryl) losartan 50 mg tablet 25 mg PO DAILY 01/18/25 01/18/25 metformin 1,000 mg tablet 1,000 mg PO BID 01/18/25 01/18/25 metoprolol tartrate 50 mg tablet 50 mg PO BID 01/18/25 01/18/25 semaglutide 0.25 mg or 0.5 mg (2 2 mg SUBCUT Q7D 01/18/25 01/18/25 mg/3 mL) subcutaneous pen injector (Ozempic) Previous Rx's ?Medication ?Instructions ?Recorded hydrocodone 5 mg-acetaminophen 325 1 tab PO Q6H PRN pain #14 tabs 01/18/25 mg tablet ondansetron 4 mg disintegrating 4 mg PO Q6H PRN nausea and 01/18/25 tablet vomiting #14 tabs tamsulosin 0.4 mg capsule (Flomax) 0.4 mg PO DAILY #5 caps 01/18/25 Allergies Allergy/AdvReac Type Severity Reaction Status Date / Time codeine AdvReac ADR-Anxiety Verified 03/22/22 15:10 Review of Systems GI: Reports: nausea and vomiting : Reports: flank pain PFS ED PFSH: Medical History H/O undescended testicle repair Diabetes Left renal stone Left ureteral calculus Urolithiasis Surgical History H/O lithotripsy Family History Mother , AT AGE 62 Chronic kidney disease (CKD) Father CAD (coronary artery disease) Social History Smoking and tobacco/nicotine status: never used tobacco/nicotine Alcohol intake: never Substance/Drug Use: never Adopted: No Caregiver/support person: No Lives independently: Yes Household members: none Marital status: Single Current occupational status: employed Current gender identity: Male Physical Exam Const: COMMON NORMALS: no acute distress, patient oriented x3 and healthy appearing HENMT: COMMON NORMALS: normocephalic and atraumatic HEAD & SCALP: normocephalic and atraumatic Neck/C-Spine: COMMON NORMALS: full ROM and supple Chest: COMMONS NORMALS: normal inspection of the chest Resp: COMMON NORMALS: normal respiratory effort Cardio: COMMON NORMALS: regular rate, regular rhythm and No murmurs present (Cardio) RATE: regular rate RHYTHM: regular rhythm GI: COMMON NORMALS: Normal to inspection, nondistended, normoactive bowel sounds present, Soft to palpation, non-tender and no masses PALPATION: Yes Soft to palpation Extremity: COMMON NORMALS: normal to inspection and full ROM Neuro: COMMON NORMALS: patient oriented x3, moves all extremities and no focal motor deficits Psych: COMMON NORMALS: mental status grossly normal, Normal thought process present and cooperative THOUGHT PROCESS: Normal thought process present Skin: COMMON NORMALS: no rashes or lesions noted and no wounds GENERAL SKIN EXAM: no rashes or lesions noted Course Vital Signs: Vital signs: Vital Signs Temperature 98.2 F 01/18/25 09:18 Pulse Rate 107 H 01/18/25 11:53 Respiratory Rate 18 01/18/25 09:18 Blood Pressure 138/87 01/18/25 11:53 Pulse Oximetry 94 01/18/25 11:53 Oxygen Delivery Me thod Room Air 01/18/25 09:18 MDM - Abdominal Pain Medical Decision Making Patient presents for flank pain differential includes appendicitis diverticulitis or aortic aneurysm these etiologies are unlikely as patient has no tenderness on exam has history and physical very consistent with kidney stones he had similar presentations in the past and does have a hematuria at this time. Patient likely has a kidney stone CT was not done as he had multiple kidney stones I do not believe that he needs a radiation of another scan at this time and his pain now is completely resolved pain is only been gone for a day. I did give him Toradol and Dilaudid and Zofran and some IV fluids that did resolve his pain. I informed him he needs to follow-up with a urologist or his PCP will DC him with a strainer will place him on Flomax hydrocodone and Zofran did go over his labs and he understands agrees to plan informed he has worsening pain or fever or vomiting he is return Medical Records I reviewed the patient's medical records. Lab Data 01/18/25 09:51 01/18/25 09:51 Labs/Radiology: Laboratory Results WBC 12.15 10^3/uL (3.29-11.43) H 01/18/25 09:51 RBC 4.70 10^6/uL (3.85-5.65) 01/18/25 09:51 Hgb 13.90 g/dL (11.27-16.99) 01/18/25 09:51 Hct 41.8 % (37-53) 01/18/25 09:51 MCV 88.9 fl (82-101) 01/18/25 09:51 MCH 29.6 pg (27-33) 01/18/25 09:51 MCHC 33.3 g/dL (30-55) 01/18/25 09:51 RDW 13.2 % (12.1-15.1) 01/18/25 09:51 Plt Count 325 10^3/cmm (157-399) 01/18/25 09:51 MPV 9.4 fL (7.4-10.4) 01/18/25 09:51 Neut % (Auto) 78.4 % 01/18/25 09:51 Lymph % (Auto) 12.3 % 01/18/25 09:51 Harris % (Auto) 6.6 % 01/18/25 09:51 Eos % (Auto) 1.9 % 01/18/25 09:51 Baso % (Auto) 0.5 % 01/18/25 09:51 Neut # (Auto) 9.52 10^3/uL (1.8-7.7) H 01/18/25 09:51 Lymph # (Auto) 1.5 10^3/uL (0.8-4.8) 01/18/25 09:51 Harris # (Auto) 0.8 10^3/uL (0.2-0.9) 01/18/25 09:51 Eos # (Auto) 0.2 10^3/uL (0.0-0.8) 01/18/25 09:51 Baso # (Auto) 0.1 10^3/uL (0.0-0.1) 01/18/25 09:51 Nucleated RBC % (auto) 0 % 01/18/25 09:51 Nucleated RBCs # 0.0 /100WBC 01/18/25 09:51 Sodium 135 mmol/L (136-145) L 01/18/25 09:51 Potassium 4.2 mmol/L (3.5-5.1) 01/18/25 09:51 Chloride 98 mmol/L (98-107) 01/18/25 09:51 Carbon Dioxide 20 mmol/L (22-29) L 01/18/25 09:51 Anion Gap 21.2 (5-19) H 01/18/25 09:51 BUN 18 mg/dL (6-20) 01/18/25 09:51 Creatinine 1.0 mg/dL (0.7-1.2) 01/18/25 09:51 GFR Calculation 80.1 mL/min (90-130) L 01/18/25 09:51 Glucose 209 mg/dL (65-115) H 01/18/25 09:51 POC Glucose 164 mg/dL (70-110) H 01/18/25 11:55 Calculated Osmolality 288 mOsm/kg (285-295) 01/18/25 09:51 Calcium 9.7 mg/dL (8.5-10.5) 01/18/25 09:51 Total Bilirubin 0.6 mg/dL (0.15-1.2) 01/18/25 09:51 AST 15 U/L (0-40) 01/18/25 09:51 ALT 9 U/L (0-41) 01/18/25 09:51 Alkaline Phosphatase 56 U/L (40-130) 01/18/25 09:51 Total Protein 7.6 g/dL (6.6-8.7) 01/18/25 09:51 Albumin 4.3 g/dL (3.5-5.2) 01/18/25 09:51 Globulin 3.3 g/dL (1.3-4.6) 01/18/25 09:51 Lipase 57 U/L (13-60) 01/18/25 09:51 Urine Color [place] (Yellow) A 01/18/25 10:40 Urine Appearance Turbid (CLEAR) A 01/18/25 10:40 Urine pH 5.5 (5-7) 01/18/25 10:40 Ur Specific [place] 1.020 (1.005-1.030) 01/18/25 10:40 Urine Protein 2+ (Negative) A 01/18/25 10:40 Urine Glucose (UA) Negative (Normal) 01/18/25 10:40 Urine Ketones 1+ (Negative) H 01/18/25 10:40 Urine Blood 3+ (Negative) A 01/18/25 10:40 Urine Nitrate Negative (Negative) 01/18/25 10:40 Urine Bilirubin Negative (Negative) 01/18/25 10:40 Urine Urobilinogen 1.0 mg/dL (Negative) 01/18/25 10:40 Ur Leukocyte Esterase 1+ (Negative) A 01/18/25 10:40 Urine RBC 50-80 /hpf (0-2) H 01/18/25 10:40 Urine WBC 10-15 /hpf (0-5) H 01/18/25 10:40 Ur Squamous Epith Cells 0-4 /hpf (0-5) H 01/18/25 10:40 Calcium Oxalate Crystal 15-25 /hpf H 01/18/25 10:40 Amorphous Sediment Not Reportable 01/18/25 10:40 Urine Bacteria 1+ /hpf (NONE) H 01/18/25 10:40 No radiology studies performed this visit Discharge Plan Discharge Patient Disposition: Home Clinical Impression: Left renal stone Condition: Stable Prescriptions: New hydrocodone-acetaminophen 5-325 mg tablet 1 tab PO Q6H PRN (Reason: pain) Qty: 14 0RF ondansetron 4 mg tablet,disintegrating 4 mg PO Q6H PRN (Reason: nausea and vomiting) Qty: 14 0RF tamsulosin [Flomax] 0.4 mg capsule 0.4 mg PO DAILY Qty: 5 0RF No Action glipizide 5 mg tablet 5 mg PO DAILY losartan 50 mg tablet 25 mg PO DAILY metformin 1,000 mg tablet 1,000 mg PO BID metoprolol tartrate 50 mg tablet 50 mg PO BID Ozempic 0.25 mg or 0.5 mg (2 mg/3 mL) pen injector 2 mg SUBCUT Q7D Rx Instructions: Tuesdays diphenhydramine HCl [Benadryl] 25 mg Capsule 25 mg PO TID PRN (Reason: allergies) Discharge Orders: Discharge ED (Routine); Ordered 01/18/25 Ordered By: Yandy Dangelo Referrals: Bre Pollack NP [Primary Care Provider, Unknown] - 4-7 days Discharge Diet: Advance as tolerated Discharge Activity: Resume usual activity Patient Instructions: Kidney Stones (ED), Opioid Safety Stand Alone Forms: Work/School Release Print Language: Vietnamese Coding Level of Care Code ED [employer] for Jyoti Birch
[2025-01-18 10:02] LABS: Hematocrit 41.8 % (37-53); Hemoglobin 13.90 g/dL (11.27-16.99); Mean Corpuscular HGB Conc 33.3 g/dL (30-55); Mean Corpuscular Hemoglobin 29.6 pg (27-33); Mean Corpuscular Volume 88.9 fl (82-101); Nucleated Red Blood Cells % 0 %; Platelet Count 325 10^3/cmm (157-399); Red Blood Count 4.70 10^6/uL (3.85-5.65); White Blood Count 12.15 10^3/uL (3.29-11.43)
[2025-01-18 10:22] LABS: Alanine Aminotransferase 9 U/L (0-41); Albumin Level 4.3 g/dL (3.5-5.2); Alkaline Phosphatase 56 U/L (40-130); Anion Gap 21.2 (5-19); Aspartate Amino Transferase 15 U/L (0-40); Blood Urea Nitrogen 18 mg/dL (6-20); Calcium 9.7 mg/dL (8.5-10.5); Carbon Dioxide 20 mmol/L (22-29); Chloride 98 mmol/L (98-107); Creatinine Clr Calc Pharmacy 95.8050; Globulin 3.3 g/dL (1.3-4.6); Glucose 209 mg/dL (65-115); Lipase 57 U/L (13-60); Osmolality Calculated 288 mOsm/kg (285-295); Potassium 4.2 mmol/L (3.5-5.1); Sodium 135 mmol/L (136-145); Total Protein 7.6 g/dL (6.6-8.7)
[2025-01-18 10:41] VITALS: BP 133/94; PULSE 112; O2SAT 96
[2025-01-18 10:48] LABS: Glucose Urine UA Negative (Normal); Nitrate Urine Negative (Negative); Specific Gravity, Urine 1.020 (1.005-1.030)
[2025-01-18 11:25] LABS: Add Urine Microscopic? YES; UA Manual Slide Review YES
[2025-01-18 11:53] VITALS: BP 138/87; PULSE 107; O2SAT 94
--- NOTE | 2025-01-20 10:00 | DCPLANNER ---
faxed urology packet to nelly leyva
== END 2025-01-18 12:00 | disposition home or self-care (01) ==
PROVIDERS: Emergency Provider Emergency Medicine; PCP Nurse Practitioner Family
DX: N20.0 Calculus of kidney (principal); Z79.84 Long term (current) use of oral hypoglycemic drugs; Z87.442 Personal history of urinary calculi
CPT/HCPCS: 36415; 36416; 80053; 81001; 82962; 83690; 85025; 87086; 96374; 96375; 99284; J1171; J1885; J2405; J7030

== ENCOUNTER 2025-01-24 11:15 | Outpatient (CLI) | payer OTHER, SELFPAY ==
--- NOTE | 2025-01-24 11:38 | XRR_ITS ---
PROCEDURE INFORMATION: Exam: XR Abdomen Exam date and time: 01/24/2025 11:44 AM Age: 49 years old Clinical indication: Condition or disease; Kidney or ureter condition; Calculus (stone) in kidney; Additional info: Calculus of kidney TECHNIQUE: Imaging protocol: Radiologic exam of the abdomen. Views: Frontal supine view of the abdomen. 1 View. COMPARISON: CR XR KUB [id number] 03/22/2022 2:50 PM FINDINGS: Gastrointestinal tract: The bowel gas pattern is nonobstructive. No pneumatosis. Organs: A 2.2 cm stone is identified over the left renal silhouette. Vasculature: No portal venous gas. Bones/joints: Clustered punctate ossific densities are seen of the right inferior renal pole silhouette, favored to represent small grouped stones. A 1.2 cm ossific density superimposes the right L4 transverse process, and could potentially represent a ureteral stone. Recommend CT abdomen and pelvis without contrast to exclude obstructive uropathy. XR/XR KUB [id number] IMPRESSION: 1. A 1.2 cm ossific density superimposes the right L4 transverse process, and could potentially represent a ureteral stone. Recommend CT abdomen and pelvis without contrast to exclude obstructive uropathy. 2. Suggested 2.2 cm left renal stone. 3. Clustered punctate ossific densities are seen of the right inferior renal pole silhouette, favored to represent small grouped stones. 4. The bowel gas pattern is nonobstructive.
== END 2025-01-24 11:16 | disposition home or self-care (01) ==
PROVIDERS: PCP Nurse Practitioner Family; Visit Provider Nurse Practitioner Family
DX: N20.0 Calculus of kidney (principal)
CPT/HCPCS: 74018